=== PATIENT | female | born 1955 | race Caucasian/White ===

== ENCOUNTER 2024-03-08 08:26 | Outpatient (CLI) | payer MEDICARE ==
[2024-03-08] MEDS ORDERED: Regadenoson 0.4 MG/5 ML SYRINGE ONE (11:24)
== END 2024-03-08 08:27 | disposition home or self-care (01) ==
LOC: NM 08:26
PROVIDERS: ATTEND Family Medicine
DX: I25.10 Atherosclerotic heart disease of native coronary artery without angina pectoris (principal)
CPT/HCPCS: 78452; 93017; A9502; J2785 ×2